=== PATIENT | female | born 1990 | race Caucasian/White ===

== ENCOUNTER 2019-09-22 07:54 | Emergency (ER) | payer OTHER, SELFPAY ==
--- NOTE | ~2019-09-22 | US_ITS ---
EXAMINATION: US OB <=14 wk fetus w TV DATE: 09/22/2019 09:13 INDICATION: Vaginal bleeding in . Pelvic pain. TECHNIQUE: Real-time transabdominal and transvaginal pelvic ultrasound was performed. COMPARISON: None. FINDINGS: TRANSABDOMINAL ULTRASOUND: The uterus measures 8.6 x 6.5 x 9.3 cm. TRANSVAGINAL ULTRASOUND: There is an intrauterine gestational sac. A yolk sac is identified. The fet al crown rump length measures 4.0 cm, which correlates with an estimated gestational age of 10 weeks and 6 day(s) (+/-) 1 week(s) and 0 day(s). heart motion is identified measuring 169 beats per m inute (bpm) by M-mode Doppler. There is a 10 x 4 x 10 mm subchorionic hematoma. The right ovary measu res 2.4 x 2.2 x 1.7 cm. The left ovary measures 2.9 x 1.5 x 2.0 cm. There is no free fluid in the pel vis. IMPRESSION: 1. Single living intrauterine gestation with estimated date of delivery of 04/13/2020. 2. Small subchorionic hematoma. Reviewed, dictated and finalized at location A. NURSE IMPRESSION: 1. Single living intrauterine gestation with estimated date of delivery of 03/24. 2. Small subchorionic hematoma.
[2019-09-22 08:00] VITALS: BP 112/69; PULSE 86; RESP 20; O2SAT 100
--- NOTE | 2019-09-22 08:16 | ED.FEMALEGU ---
HPI - Female Genitourinary General Chief complaint: Vaginal Bleeding Stated complaint: 9 WKS PREG AND SPOTTING Time Seen by Provider: 09/22/19 08:16 Source: patient Mode of arrival: ambulatory Limitations: no limitations History of Present Illness MD elicited complaint: vaginal bleeding and pelvic pain Onset (ago): hour(s) (4) Severity: moderate Female Urogenital Radiation: Non-Radiating Quality of pain: cramping Consistency: intermittent Vaginal bleeding: scant (Spotting) and bright red Exacerbating factors: none Relieving factors: none Treatment prior to arrival: none Patient : Yes Date of Last Menstrual Period: 07/15/19 Related Data : 4 Para: 3 Total number of abortions (spontaneous and elective): 0 Home Medications Medication Instructions Recorded Confirmed No Home Medications 09/22/19 09/22/19 Allergies Allergy/AdvReac Type Severity Reaction Status Date / Time human papillomavirus Allergy Unknown Verified 09/22/19 08:25 vaccine, 9-valent [From Gardasil 9 (PF)] prochlorperazine Allergy Unknown Verified 09/22/19 08:25 [From Compazine] Review of Systems Review of Systems: All systems reviewed & are unremarkable except as noted in HPI and below PMFSH Past Medical History Medical History (Updated 09/22/19 @ 09:52 by Prabhu Tyler MD) Back fracture Surgical History Surgical History (Updated 09/22/19 @ 09:40 by Prabhu Tyler MD) History of appendectomy Social History Social History (Updated 09/22/19 @ 09:41 by Prabhu Tyler MD) Smoking status: Current every day smoker Alcohol intake: never Substance use: never Living arrangements: with family Exam Const: General: healthy appearing, no acute distress and alert Nutritional Appearance: well nourished Orientation/consciousness: patient oriented x3 Other: Female nurse in room during exam. HENMT: Head: normal to inspection Ears: external ears normal General nose exam: Normal external nose present Face and sinus: normal facial exam Eyes: General: appearance normal, both eyes and all related structures Visual Rodriguez: normal visual rodriguez by confrontation Conjunctivae: conjunctivae normal Pupils: Equal, round and reactive pupils present EOM: EOMs intact bilaterally Neck: Neck: normal visual inspection and no lymphadenopathy Resp: Effort & Inspection: normal respiratory effort Auscultation: clear to auscultation bilaterally Cardio: Rate: regular rate Rhythm: regular rhythm Heart sounds: no murmurs GI: GI Palp: Yes Soft to palpation, Yes Tenderness to palpation present (GI) (Mild) and No Guarding due to palpation present (GI) Auscultation: normal bowel sounds Back/Spine/Pelvis: Back: no CVA tenderness Skin: General skin exam: normal color Rashes: no rashes Neuro: General: patient oriented x3, moves all extremities and no focal motor deficits Speech: normal speech Extrem: General: normal to inspection and no pedal edema Psych: Appearance: well kempt Mental Status: mental status grossly normal Affect: normal affect Attitude: cooperative Thought content: Yes Normal thought content present Judgement: Good judgement present (Psych) Course Consultations Consultation #1: I discussed the case with Dr. Frey on-call for Dr. Bonilla. We discussed the chorionic hematoma. He related that this could go on to a completely normal or could become a spontaneous miscarriage. There is no current treatment to avoid the spontaneous miscarriage. Patient is Rh positive. She will follow-up in the office as scheduled. Vital Signs Vital signs: Vital Signs Pulse Rate 86 09/22/19 08:00 Respiratory Rate 20 09/22/19 08:00 Blood Pressure 112/69 09/22/19 08:00 Pulse Oximetry 100 09/22/19 08:00 Pulse Rate 86 09/22/19 08:00 Respiratory Rate 20 09/22/19 08:00 Blood Pressure 112/69 09/22/19 08:00 Pulse Oximetry 100 09/22/19 08:00 Discharge Plan Discharge Clin
--- NOTE | 2019-09-22 09:35 | PC.NURSE ---
call to dr flynn office. dr flores is adoption agent. left voice mail for him on cell phone. [phone]
--- NOTE | 2019-09-22 09:42 | PC.NURSE ---
erp dr yusuf speaking with dr flores.
== END 2019-09-22 09:58 | disposition home or self-care (01) ==
PROVIDERS: Emergency Provider Emergency Medicine; PCP Family Medicine
DX: O20.0 Threatened abortion (principal)
CPT/HCPCS: 76801; 76817; 99282; 99284

== ENCOUNTER 2023-11-07 14:33 | Emergency (ER) | payer OTHER, SELFPAY ==
[2023-11-07 14:33] VITALS: BP 105/74; PULSE 87; RESP 17; TEMP 38.4; O2SAT 98
--- NOTE | 2023-11-07 14:35 | ED.DENTAL ---
HPI - Dental/Oral General Chief complaint: Dental/Oral Stated complaint: dental pain, fever Time Seen by Provider: 11/07/23 14:34 Source: patient Mode of arrival: ambulatory Limitations: no limitations History of Present Illness HPI Narrative: 33-year-old white female complains of gum pain left upper molar area posteriorly social with facial pressure and ear ache. she took ibuprofen for this 1 tablet [id number].She also has general muscle aches feels like she has got a fever and has been coughing with runny nose and chills today. Denies any problems eating or drinking voiding or stooling walking or talking rash or itching bleeding or bruising lumps or bumps or swelling dizziness or lightheadedness or any other complaints. Patient has no significant past medical history Related Data Allergies Allergy/AdvReac Type Severity Reaction Status Date / Time human papillomavirus Allergy Unknown Verified 11/07/23 14:34 vaccine, 9-valent [From Gardasil 9 (PF)] prochlorperazine Allergy Unknown Verified 11/07/23 14:34 [From Compazine] Review of Systems Review of Systems: All systems reviewed & are unremarkable except as noted in HPI and below PMFSH Past Medical History Medical History (Updated 11/07/23 @ 16:00 by Hilton Wesley MD) Back fracture Pain, dental Surgical History Surgical History History of appendectomy Social History Social History Smoking status: Current every day smoker Alcohol intake: never Substance use: never Living arrangements: with family Exam Narrative: White female patient with no apparent distress.? Head normocephalic, atraumatic.? Eyes conjunctiva pink sclera nonicteric.? Extraocular movements are intact.? Ears externally normal.? TMs are normal bilaterally. Oropharynx is clear with moist mucous membranes without exudates.? She has minimal tenderness and swelling of the left upper gum area. Neck is supple nontender no lymphadenopathy.? Back is nontender.? Lungs are clear.? Heart is regular rate and rhythm without murmurs gallops or rubs.? Chest wall nontender.? Back is nontender. Abdomen is soft and nontender no hepatosplenomegaly or masses no CVA tenderness no abdominal bruits.? Extremities no cyanosis clubbing or edema.? Skin is warm and dry without rashes or lesions.? Neurological patient is alert and oriented x4.? Motor and sensory grossly intact.? Gait is normal. Temp was 101.1? however she was wearing a electric heating jacket. Last temperature was 99.0? Course Vital Signs Vital signs: Vital Signs Temperature 38.4 C H 11/07/23 14:33 Pulse Rate 87 11/07/23 14:33 Respiratory Rate 11/07/23 14:33 Blood Pressure 105/74 11/07/23 14:33 Pulse Oximetry 98 11/07/23 14:33 Oxygen Delivery Room Air 11/07/23 14:33 Temperature 37.2 C 11/07/23 15:16 Pulse Rate 87 11/07/23 14:33 Respiratory Rate 11/07/23 14:33 Blood Pressure 105/74 11/07/23 14:33 Pulse Oximetry 98 11/07/23 14:33 Oxygen Delivery Room Air 11/07/23 14:33 MDM - Dental/Oral MDM Narrative Medical decision making narrative: Patient was placed in Room # 3 with her Charli CADE flu a RSV strep negative Flu B positive Independent Historian: Charli Differential Dx includes but not limited to: COVID flu RSV strep dental abscess dental caries Medications were Reviewed: home meds reviewed Medications, treatment, ED course: Pen-VK 500 tramadol 50 Tylenol 650 p.o. Independently Interpreted by me: External Source Review: Shared decision Making: evaluation was discussed all questions were asked and answered and patient agreed with plan. pen VK 500 twice a day for 10 days tramadol 50 3 times a day as needed for pain Tylenol and/or ibuprofen for pain Social Situation Impacting Patients Care: DISCHARGE DIAGNOSIS: influenza B, dental p
[2023-11-07 15:16] VITALS: TEMP 37.2
[2023-11-07 15:23] LABS: Strep Group A RT-PCR NOT DETECTED (Negative)
[2023-11-07] MEDS: PENICILLIN V POTASSIUM 250 MG TABLET 500 MG PO (15:29)
[2023-11-07] MEDS: ACETAMINOPHEN 325 MG TABLET 650 MG PO (15:30)
[2023-11-07] MEDS: traMADol HCL (*CRX) 50 MG TABLET PO (15:30)
[2023-11-07 15:35] LABS: SARS-CoV-2 RNA PCR Negative (Negative)
[2023-11-07 15:37] LABS: Influenza A QL RT-PCR Negative (Negative); Influenza B QL RT-PCR Positive (Negative); RSV RNA, RT-PCR Negative (Negative)
[2023-11-07 16:00] VITALS: TEMP 37.2
[2023-11-07 16:12] VITALS: BP 107/79; PULSE 85; RESP 17; TEMP 37.2; O2SAT 100
== END 2023-11-07 16:12 | disposition home or self-care (01) ==
PROVIDERS: Emergency Provider Emergency Medicine
DX: J10.1 Influenza due to other identified influenza virus with other respiratory manifestations (principal); K08.89 Other specified disorders of teeth and supporting structures; F17.200 Nicotine dependence, unspecified, uncomplicated; Z20.822 Contact with and (suspected) exposure to COVID-19
CPT/HCPCS: 87637; 87651; 99283; A9270

== ENCOUNTER 2024-12-19 15:41 | Outpatient (RCR) | payer OTHER, SELFPAY ==
--- NOTE | 2024-12-19 16:57 | OPREHPOC ---
Outpatient Therapy Plan of Care This is a Multidisciplinary Plan of Care that may contain components documented by all disciplines (PT, OT, and ST.) PT Problem 1 PT Problem #1 Knowledge Deficit PT Goal 1 Goal / Goal Update The patient will be independent in a home exercise program. Target Visit 4 PT Problem 2 PT Problem #2 Pain PT Goal 1 Goal / Goal Update The patient will report no greater than 3/10 left knee pain with transition to walking without an AD . Target Visit 12 PT Problem 3 PT Problem #3 Impaired Range of Motion PT Goal 1 Goal / Goal Update The patient will demonstrate 0-130 degrees left knee AROM to normalize gait and stair negotiation. Target Visit 12 PT Problem 4 PT Problem #4 Impaired Functional Mobility PT Goal 1 Goal / Goal Update The patient will demonstrate 30% or less self perceived disability per the LEFS questionnaire. The patient will be able to ambulate 1,200 feet during the 6 minute walk test with good gait mechanics and no AD. The patient will demonstrate the ability to ascend /descend a flight of stairs reciprocally. Target Visit 24 PT Problem 5 PT Problem #5 Impaired Strength PT Goal 1 Goal / Goal Update The patient will demonstrate at least 4/5 left knee and hip strength to return to PLOF. The patient will lift 30# from floor to waist with good mechanics and no knee pain in order to lift household items. Target Visit 24
--- NOTE | 2024-12-19 16:58 | PTOPEVAL1 ---
Assessment and note entered by Nimco Castro, PT Evaluation Information Assessment Status Evaluation Onset 11/29/24 Subjective Information Micki Farias reports she injured her knee left in early September when she got up from a tammy cross applesauce seated position and she felt a pop in the knee. She notes the knee was unstable after that and was giving out. She went to the ER the next day and was put into a knee immobilizer. She then saw a specialist and had a MRI that showed 3 tears in the meniscus. She had surgery on 11/29/24 and has been in a hinged knee brace locked in extension since the surgery. She is using crutches for ambulation. She notes difficulty sleeping in the brace, walking, and getting in and out of the bathtub and car. She is using hydrocodone for pain and only uses it approximately once a day. 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. 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 Reported Pain Level Pain Score 1: Self Report Assessment PT Clinical Summary Micki Farias presents nearly 3 weeks s/p left knee arthroscopy for medial meniscus repair. She reports difficulty walking, getting in/out of vehicles and the bathtub, standing, sleeping, and working as a rn prior authorization. She objectively demonstrates decreased left knee flexion ROM, decreased right quadriceps recruitment, decreased left knee and hip strength, impaired gait, impaired balance, and decreased functional abilities. She will benefit from skilled PT to address these limitations. Treatment will be progressed per post op protocol. Plan of Care Interventions Electrical Stimulation,Gait Training,Hot Pack/Cold Pack,Neuro Re-education,Patient/Caregiver Education,Therapeutic Activities,Therapeutic Exercise PT Services Indicated Yes Treatment Frequency and 3 times a week for 12 visits Duration These treatments will address the objective and functional deficits as defined above. The patient will be advanced safely and appropriately in order for the patient to progress towards his/her prior level of function. Additional exercises will be introduced and as well as a comprehensive home exercise program upon discharge, if needed, ?to ensure carryover of functional gains achieved in the clinic. This treatment plan has been reviewed and agreement upon by the patient.
--- NOTE | 2025-01-11 16:57 | OPREHPOC ---
Outpatient Therapy Plan of Care This is a Multidisciplinary Plan of Care that may contain components documented by all disciplines (PT, OT, and ST.) PT Problem 1 PT Problem #1 Knowledge Deficit PT Goal 1 Goal / Goal Update The patient will be independent in a home exercise program. Target Visit 4 Progress Met PT Problem 2 PT Problem #2 Pain PT Goal 1 Goal / Goal Update The patient will report no greater than 3/10 left knee pain with transition to walking without an AD . Target Visit 12 Progress Met PT Problem 3 PT Problem #3 Impaired Range of Motion PT Goal 1 Goal / Goal Update The patient will demonstrate 0-130 degrees left knee AROM to normalize gait and stair negotiation. Target Visit 12 Progress Met PT Problem 4 PT Problem #4 Impaired Functional Mobility PT Goal 1 Goal / Goal Update The patient will demonstrate 30% or less self perceived disability per the LEFS questionnaire. The patient will be able to ambulate 1,200 feet during the 6 minute walk test with good gait mechanics and no AD. The patient will demonstrate the ability to ascend /descend a flight of stairs reciprocally. Target Visit 24 Progress Not Met PT Problem 5 PT Problem #5 Impaired Strength PT Goal 1 Goal / Goal Update The patient will demonstrate at least 4/5 left knee and hip strength to return to PLOF. The patient will lift 30# from floor to waist with good mechanics and no knee pain in order to lift household items. Target Visit 24 Progress Not Met
--- NOTE | 2025-01-11 16:57 | PTOPPROG ---
Assessment and note entered by Chinyere Orellana, PT Evaluation Information Assessment Status Progress Other ICD-10 Condition Codes ( Z98.890, S83.207A PT) Onset 11/29/24 Subjective Information Micki is now 6 weeks post-op from L medial meniscus repair. She is only wearing her brace when she's walking. She has had trouble sleeping due to not wearing the brace but she has been placing a pillow between her knees when in sidelying and thinks she'll get used to sleeping normally again with time. She feels like her range of motion has improved, her strength is slowly improving, and she no longer has a pulling sensation in her calf when bending her knee. Assessment PT Clinical Summary Mrs. Farias has attended 10 total skilled PT visits following L medial meniscus repair on . She is now 6 weeks post-op and is ambulating in her brace FWB without crutches. She has made great improvements in her L knee AROM and has progressed to performing light closed chain strengthening activities. She will benefit from continued skilled PT intervention per protocol to improve strength and functional use of the L knee to return to daily functional and work activities without difficulty. Plan of Care Interventions Electrical Stimulation,Gait Training,Hot Pack/Cold Pack,Neuro Re-education,Patient/Caregiver Education,Therapeutic Activities,Therapeutic Exercise PT Services Indicated Yes Treatment Frequency and 3x/week for 12 additional visits Duration These treatments will address the objective and functional deficits as defined above. The patient will be advanced safely and appropriately in order for the patient to progress towards his/her prior level of function. Additional exercises will be introduced and as well as a comprehensive home exercise program upon discharge, if needed, ?to ensure carryover of functional gains achieved in the clinic. This treatment plan has been reviewed and agreement upon by the patient.
--- NOTE | 2025-01-22 17:03 | PCPTNOTE ---
No call no show. left for pt.
--- NOTE | 2025-02-14 15:11 | PCPTNOTE ---
Cancelled session. Forgot her daughter had a softball game.
--- NOTE | 2025-02-21 17:45 | OPREHPOC ---
Outpatient Therapy Plan of Care This is a Multidisciplinary Plan of Care that may contain components documented by all disciplines (PT, OT, and ST.) PT Problem 1 PT Problem #1 Knowledge Deficit PT Goal 1 Goal / Goal Update The patient will be independent in a home exercise program. Target Visit 4 Progress Met PT Problem 2 PT Problem #2 Pain PT Goal 1 Goal / Goal Update The patient will report no greater than 3/10 left knee pain with transition to walking without an AD . Target Visit 12 Progress Met PT Problem 3 PT Problem #3 Impaired Range of Motion PT Goal 1 Goal / Goal Update The patient will demonstrate 0-130 degrees left knee AROM to normalize gait and stair negotiation. Target Visit 12 Progress Met PT Problem 4 PT Problem #4 Impaired Functional Mobility PT Goal 1 Goal / Goal Update The patient will demonstrate 30% or less self perceived disability per the LEFS questionnaire. -met The patient will be able to ambulate 1,200 feet during the 6 minute walk test with good gait mechanics and no AD. -met The patient will demonstrate the ability to ascend /descend a flight of stairs reciprocally. -not assessed Target Visit 24 Progress Partially Met PT Problem 5 PT Problem #5 Impaired Strength PT Goal 1 Goal / Goal Update The patient will demonstrate at least 4/5 left knee and hip strength to return to PLOF. -not met The patient will lift 30# from floor to waist with good mechanics and no knee pain in order to lift household items. -not met Target Visit 24 Progress Not Met
--- NOTE | 2025-02-21 17:45 | PTOPPROG ---
Assessment and note entered by Nimco Castro, PT Evaluation Information Assessment Status Discharge Other ICD-10 Condition Codes ( Z98.890, S83.207A PT) Onset 11/29/24 Subjective Information Micki reports her left knee has been doing better overall. She reports she still gets occasional pain with multiple flights of stairs, attempting to run, or prolonged standing. She notes she had to run a bit after her younger daughter and it cause a little pain. She also notes her knee will hyperextend after being on her feet a lot. Assessment PT Clinical Summary Mrs. Farias has attended 10 total skilled PT visits following L medial meniscus repair on . She is now 12 weeks post-op and reports most activity is going well but she still has difficulty with multiple flights of stairs and can not run. She demonstrates full knee ROM now however, she continues to weakness in the left knee and hip. She is only to squat to 45 degrees with equal weight bearing and demonstrates functional weakness and decreased endurance. She is not allowed to run, jump, or twist at the knee per post op protocol. She will continue to benefit from skilled PT to further address these limitations. Plan of Care Interventions Electrical Stimulation,Gait Training,Hot Pack/Cold Pack,Neuro Re-education,Patient/Caregiver Education,Therapeutic Activities,Therapeutic Exercise PT Services Indicated Yes Treatment Frequency and Continue POC for 2 additional visits until follow Duration up with MD on 03/07/25 These treatments will address the objective and functional deficits as defined above. The patient will be advanced safely and appropriately in order for the patient to progress towards his/her prior level of function. Additional exercises will be introduced and as well as a comprehensive home exercise program upon discharge, if needed, ?to ensure carryover of functional gains achieved in the clinic. This treatment plan has been reviewed and agreement upon by the patient.
== END 2025-03-19 23:59 | disposition home or self-care (01) ==
LOC: CHSPT 15:41
DX: Z47.1 Aftercare following joint replacement surgery (principal); M25.562 Pain in left knee; S83.207A Unspecified tear of unspecified meniscus, current injury, left knee, initial encounter; Z98.890 Other specified postprocedural states
CPT/HCPCS: 97014; 97016; 97110; 97112; 97140; 97161; 97530; G0283

== ENCOUNTER 2025-03-21 15:09 | Outpatient (RCR) | payer OTHER, SELFPAY ==
--- NOTE | 2025-03-21 16:45 | OPREHPOC ---
Outpatient Therapy Plan of Care This is a Multidisciplinary Plan of Care that may contain components documented by all disciplines (PT, OT, and ST.) PT Problem 1 PT Problem #1 Knowledge Deficit PT Goal 1 Goal / Goal Update The patient will be independent in a home exercise program. Target Visit 4 Progress Met PT Problem 2 PT Problem #2 Pain PT Goal 1 Goal / Goal Update The patient will report no greater than 3/10 left knee pain with transition to walking without an AD . Target Visit 12 Progress Met PT Problem 3 PT Problem #3 Impaired Range of Motion PT Goal 1 Goal / Goal Update The patient will demonstrate 0-130 degrees left knee AROM to normalize gait and stair negotiation. Target Visit 12 Progress Met PT Problem 4 PT Problem #4 Impaired Functional Mobility PT Goal 1 Goal / Goal Update The patient will demonstrate 30% or less self perceived disability per the LEFS questionnaire. -met The patient will be able to ambulate 1,200 feet during the 6 minute walk test with good gait mechanics and no AD. -met The patient will demonstrate the ability to ascend /descend a flight of stairs reciprocally. -not assessed Target Visit 30 Progress Partially Met PT Problem 5 PT Problem #5 Impaired Strength PT Goal 1 Goal / Goal Update The patient will demonstrate at least 4/5 left knee and hip strength to return to PLOF. -not met The patient will lift 30# from floor to waist with good mechanics and no knee pain in order to lift household items. -not met Target Visit 30 Progress Not Met
--- NOTE | 2025-03-21 16:45 | PTOPPROG ---
Assessment and note entered by Nimco Castro, PT Evaluation Information Assessment Status Progress Other ICD-10 Condition Codes ( Z98.890, S83.207A PT) Onset 11/29/24 Subjective Information Micki reports she saw her physician on 03/07/25 and was referred back to skilled PT because she is still having pain in the left knee when she twists her leg out to the side. She notes this limits her ability to put on her shoes. She also is still slow with stairs. She reports her doctor would not let her return to work yet and she sees the doctor again on 04/04/25. Assessment PT Clinical Summary Mrs. Farias has attended 22 total skilled PT visits following L medial meniscus repair on . She is now 16 weeks post-op and reports most activity is going well but she still has difficulty with multiple flights of stairs and can not run. She was referred back to PT after her recent return to doctor due to pain when twisting the left knee out. She demonstrates full knee ROM now however, she continues to demonstrate weakness in the left knee and hip. She is able to squat to 60 degrees with equal weight bearing and demonstrates functional weakness and decreased endurance. She has just reached 16 weeks post op when she is allowed to start running, jumping, and agility exercises. She will continue to benefit from skilled PT to further address these limitations. Plan of Care Interventions Electrical Stimulation,Gait Training,Hot Pack/Cold Pack,Neuro Re-education,Patient/Caregiver Education,Therapeutic Activities,Therapeutic Exercise PT Services Indicated Yes Treatment Frequency and Continue 2 times a week for 8 additional visits Duration until follow up with MD on 04/04/25 These treatments will address the objective and functional deficits as defined above. The patient will be advanced safely and appropriately in order for the patient to progress towards his/her prior level of function. Additional exercises will be introduced and as well as a comprehensive home exercise program upon discharge, if needed, ?to ensure carryover of functional gains achieved in the clinic. This treatment plan has been reviewed and agreement upon by the patient.
--- NOTE | 2025-03-30 13:11 | PCPTNOTE ---
Cancelled session. is still having car issues.
== END 2025-06-19 23:59 | disposition home or self-care (01) ==
LOC: CHSPT 15:09
DX: Z47.1 Aftercare following joint replacement surgery (principal); M25.562 Pain in left knee; S83.207A Unspecified tear of unspecified meniscus, current injury, left knee, initial encounter; Z98.890 Other specified postprocedural states
CPT/HCPCS: 97110; 97112; 97530